=== PATIENT | male | born 1955 | race Caucasian/White ===

== ENCOUNTER 2021-01-01 21:21 | Observation (INO) ==
[2021-01-01] MEDS ORDERED: Nitroglycerin 1 INCH/GM PACKET TP ONE (21:44)
[2021-01-01] MEDS ORDERED: Aspirin 81 MG TAB.CHEW PO ONE (21:44)
[2021-01-01 22:08] LABS: Basophils # 0.1 K/mcL (0.0-0.2); Basophils % 0.5 %; Eosinophils # 0.3 K/mcL (0.0-0.6); Eosinophils % 2.8 %; Hematocrit 42.5 % (37.5-50.1); Hemoglobin 14.4 g/dL (12.9-16.9); Immature Granulocytes % 0.3 % (0-4); Lymphocytes # 1.8 K/mcL (0.6-4.6); Lymphocytes % 15.6 %; Mean Corpuscular HGB Conc 33.9 g/dL (31.6-35.5); Mean Corpuscular Hemoglobin 30.5 pg (28.0-33.3); Mean Platelet Volume 10.2 fL (9.4-12.4); Monocytes # 0.8 K/mcL (0.0-1.3); Monocytes % 6.9 %; Platelet Count 213 K/mcL (140-400); Red Blood Count 4.72 M/mcL (4.19-5.50); Red Cell Distribution Width 12.5 % (11.5-14.5); Segmented Neutrophils % 73.9 %; White Blood Count 11.7 K/mcL (4.3-11.1)
[2021-01-01 22:09] LABS: Neutrophils # 8.7 K/mcL (1.6-8.9)
[2021-01-01 22:14] LABS: Prothrombin Time 11.1 Seconds (9.4-12.1)
[2021-01-01 22:17] LABS: Activated Partial Thrombo Time 28.2 Seconds (26.0-36.0)
[2021-01-01 22:24] LABS: BUN/Creatinine Ratio 20 (6-26); Blood Urea Nitrogen 22 mg/dL (8-23); Calcium 9.4 mg/dL (8.6-10.3); Carbon Dioxide 30 mEq/L (23-29); Chloride 99 mEq/L (98-107); Glucose 179 mg/dL (70-105); Osmolality,Calculated 294 (280-300); Potassium 3.7 mEq/L (3.5-5.1); Sodium 138 mEq/L (136-145); eGFR For African Americans > 60 (> 60); eGFR For Non-African Americans > 60 (> 60)
[2021-01-01 22:25] LABS: Albumin 4.5 g/dL (3.5-5.7); Albumin/Globulin Ratio 1.6 (1.1-2.2); Bilirubin,Direct 0.1 mg/dL (0.0-0.2); Bilirubin,Indirect 0.3 mg/dL (0.0-1.0); Bilirubin,Total 0.4 mg/dL (0.3-1.0); Globulin 2.8 g/dL (2.4-3.5); Total Protein 7.3 g/dL (6.4-8.9)
[2021-01-01 22:26] LABS: Troponin I < 0.03 ng/mL (< 0.04)
[2021-01-01] MEDS ORDERED: Nitroglycerin 1 INCH/GM PACKET ONE (22:27)
[2021-01-01] MEDS ORDERED: Aspirin 81 MG TAB.CHEW ONE (22:27)
[2021-01-01] MEDS ORDERED: Nitroglycerin 0.4 MG TAB.SUBL SL PRN (22:52)
[2021-01-01] MEDS ORDERED: Morphine Sulfate 2 MG/ML SYRINGE IVP PRN (22:53)
[2021-01-02] MEDS ORDERED: Nitroglycerin 0.4 MG TAB.SUBL SL PRN (00:19)
[2021-01-02] MEDS ORDERED: Naloxone 0.4 MG/ML INJ IVP PRN (00:19)
[2021-01-02] MEDS ORDERED: Ondansetron 4 MG/2 ML VIAL IVP PRN (00:19)
[2021-01-02] MEDS ORDERED: Morphine Sulfate 2 MG/ML SYRINGE IVP PRN (00:19)
[2021-01-02] MEDS ORDERED: *HR* Metformin 500 MG TABLET PO SCH (08:00)
[2021-01-02] MEDS ORDERED: Aspirin 81 MG TAB.CHEW PO SCH (09:00)
[2021-01-02] MEDS ORDERED: FLUoxetine 20 MG CAPSULE PO SCH (09:00)
[2021-01-02 09:01] LABS: BUN/Creatinine Ratio 20 (6-26); Blood Urea Nitrogen 21 mg/dL (8-23); Calcium 8.9 mg/dL (8.6-10.3); Carbon Dioxide 27 mEq/L (23-29); Chloride 100 mEq/L (98-107); Creatine Kinase 174 Units/L (30-223); Glucose 206 mg/dL (70-105); Magnesium 1.6 mg/dL (1.6-2.6); Osmolality,Calculated 295 (280-300); Potassium 3.7 mEq/L (3.5-5.1); Sodium 138 mEq/L (136-145); eGFR For African Americans > 60 (> 60); eGFR For Non-African Americans > 60 (> 60)
[2021-01-02 11:47] VITALS: BP 142/71
[2021-01-02] MEDS ORDERED: *HR* HYDROcodone/Acet 5/325 mg TABLET PO PRN ×2 (13:15→13:16)
[2021-01-02] MEDS ORDERED: *HR* LORazepam 0.5 MG TABLET PO PRN (13:22)
[2021-01-02] MEDS ORDERED: Dextrose Gel 15 GM/37.5 ML TUBE PO PRN ×2 (13:23)
[2021-01-02] MEDS ORDERED: D5% in Water 1,000 ML IVC PRN (13:23)
[2021-01-02] MEDS ORDERED: *HR* Dextrose 50 % in Water (Vial) 50 ML VIAL IVP PRN (13:23)
[2021-01-02] MEDS ORDERED: Insulin LISPRO 300 UNITS/3 ML VIAL SUBQ SCH ×2 (16:30→21:00)
[2021-01-03] MEDS ORDERED: *HR* Enoxaparin 40 MG/0.4 ML SYRINGE SQ SCH (06:00)
[2021-01-03] MEDS ORDERED: Nitroglycerin 0.2 MG PATCH.TD24 TD SCH (07:30)
[2021-01-03] MEDS ORDERED: Nitroglycerin 0.4 MG PATCH.TD24 TD SCH (07:30)
== END 2021-01-02 16:04 | disposition short-term general hospital (02) ==
LOC: EMEROOGRE 21:21 → INTOOBSV 23:16 → INPGRE 23:16
PROVIDERS: ADMIT Internal Medicine; ATTEND Internal Medicine